=== PATIENT | male | born 1955 | race Caucasian/White ===

== ENCOUNTER 2017-03-02 18:19 | Emergency (ER) | payer BC ==
[~2017-03-02 18:19] MED LIST: AMOXICILLIN500 M1 PO; AMOXICILLIN875 MG PO; ASPIRIN PO; ASPIRIN81 MG PO; CLEOCIN PO; GLUCOPHAGE500 MG PO; INDOCIN SR75 MG PO; JANUMET XR 1001 EACH PO; JANUMET XR 50-1 EAC1 PO; KEFLEX PO; LISINOPRIL5 MG PO; LODINE PO; LORTAB 10/500 T1 TAB PO; MEDROL DOSEPAK4 MG DOB; METFORMIN PO; MOTRIN600 M1 PO; PERCOCET 5/321 UDTAB DOB; ROBITUSSIN A-C S5 ML PO; SKELAXIN PO; STERAPRED DS PO; TOPROL XL PO; VOLTAREN50 MG PO; VOLTAREN75 MG PO; ZESTRIL5 MG PO; ZYLOPRIM100 MG PO
[2017-03-02] MEDS ORDERED: METOPROLOL PO (18:23)
[2017-03-02] MEDS ORDERED: ATORVASTATIN PO (18:24)
== END 2017-03-02 19:09 | disposition home or self-care (01) ==
LOC: SED 18:19
DX: S81.811A Laceration without foreign body, right lower leg, initial encounter (principal); E11.9 Type 2 diabetes mellitus without complications; I10 Essential (primary) hypertension; Z23 Encounter for immunization; Z79.899 Other long term (current) drug therapy; W28.XXXA Contact with powered lawn mower, initial encounter; Y92.009 Unspecified place in unspecified non-institutional (private) residence as the place of occurrence of the external cause
CPT/HCPCS: 12001; 90471; 90715; 99283